=== PATIENT | male | born 1940 | race Caucasian/White ===

== ENCOUNTER 2018-07-15 10:55 | Emergency (ER) | payer MEDICARE, OTHER ==
[2018-07-15 11:04] VITALS: BP 124/59
[2018-07-15] MEDS ORDERED: Diphtheria,Pertussis(Acell),Tetanus Vaccine 0.5 ML SDV IM ONE (11:35)
--- NOTE | 2018-07-15 11:35 | EDM.PDOC ---
ED HPI GENERAL MEDICAL PROBLEM - General Chief Complaint: Laceration Stated Complaint: LEFT RING FINGER LAC Time Seen by Provider: 07/15/18 11:23 Source of Information: Reports: Patient History Limitations: Reports: No Limitations - History of Present Illness INITIAL COMMENTS - FREE TEXT/NARRATIVE: 78-year-old male presents without evaluation and treatment of the laceration to the left fourth distal finger. Injury occurred last night. Reports he cut himself with a pocket knife. Initially bled quite heavily but bleeding is controlled upon arrival to the ED. He denies any numbness or tingling or decreased range of motion. Unsure of last tetanus. Patient takes garlic and a baby aspirin daily. Left 4-Ring finger Pain Score (Numeric/FACES): 3 - Related Data Allergies Allergy/AdvReac Type Severity Reaction Status Date / Time No Known Allergies Allergy Verified 07/15/18 11:04 Past Medical History HEENT History: Reports: Cataract Cardiovascular History: Reports: Hypertension Gastrointestinal History: Reports: Chronic Constipation Musculoskeletal History: Reports: Amputation, Back Pain, Chronic, Fracture Oncologic (Cancer) History: Reports: Basal Cell Carcinoma Dermatologic History: Reports: Melanoma - Past Surgical History HEENT Surgical History: Reports: Cataract Surgery Cardiovascular Surgical History: Reports: Other (See Below) Musculoskeletal Surgical History: Reports: Arthroscopic Procedure, Hip Replacement, Shoulder Surgery Social & Family History - Caffeine Use Caffeine Use: Reports: Coffee ED ROS GENERAL - Review of Systems Review Of Systems: See Below Musculoskeletal: Reports: Other (No decreased range of motion to the left hand fourth finger) Skin: Reports: Wound (Left hand distal fourth finger) Neurological: Denies: Numbness, Tingling ED EXAM, SKIN/RASH Exam: See Below Exam Limited By: No Limitations General Appearance: Alert, WD/WN, No Apparent Distress Respiratory/Chest: No Respiratory Distress Cardiovascular: Normal Peripheral Pulses, Regular Rate, Rhythm Peripheral Pulses: 2+: Radial (L) Extremities: Normal Inspection, Normal Range of Motion (Patient is able to make a fist, flex and extend the fourth finger both without and against resistance, able to adduct and abduct the fingers), Normal Capillary Refill Neurological: Alert, Oriented, Normal Cognition Psychiatric: Normal Affect, Normal Mood Skin: Warm, Dry, Normal Color, Wound/Incision (Proximally 1/2 cm laceration to the left hand distal fourth finger, ventral aspect over the finger pad superficial) Location, Skin: Upper Extremity, Left Characteristics: Linear Associated features: Tenderness (Reports soreness to the area) ED SKIN PROCEDURES - Laceration/Wound Repair Left Distal Ventral Digit - 4th (Ring) Lac/Wound length In cm: 2 Appearance: Superficial, Linear Distal NVT: Neuro & Vascular Intact, No Tendon Injury Closed with: Dermabond Sterile Dressing Applied: Nurse Tetanus Status Addressed: Yes Complications: No Course - Vital Signs Last Recorded V/S: Last Vital Signs Temp 98.4 F 07/15/18 11:01 Pulse 71 07/15/18 11:01 Resp 16 07/15/18 11:01 BP 124/59 L 07/15/18 11:01 Pulse Ox 96 07/15/18 11:01 - Orders/Labs/Meds Orders: Active Orders 24 hr Category Date Time Status Vaccines to be Administered [RC] PER UNIT ROUTINE Care 07/15/18 11:35 Active Meds: Medications Discontinued Medications Generic Name Dose Route Start Last Admin Trade Name Freq PRN Reason Stop Dose Admin Diphtheria/Tetanus/Acell Pertussis 0.5 ml 07/15/18 11:35 07/15/18 11:57 Adacel IM 07/15/18 11:36 0.5 ml .ONCE ONE Administration - Re-Assessments/Exams Free Text/Narrative Re-Assessment/Exam: 07/15/18 12:27 wound repaired with dermabond by nursing staff. Patient tolerated well. No complications. Tetanus up dated. Discharge instructions as documented. Departure - Departure Time of Disposition: 12:28 Disposition: Home, Self-Care 01 Condition: Good Clinical Impression: Laceration - Discharge Information *PRESCRIPTION DRUG MONITORING PROGRAM REVIEWED*: No *COPY OF PRESCRIPTION DRUG MONITORING REPORT IN PATIENT BEKA: No Instructions: Laceration Care, Adult, [id number] Referrals: Marcy Ontiveros DO [Ordering Only Provider] - Forms: ED Department Discharge Additional Instructions: Wash the wound with gentle soap and water twice a day. Keep covered with a Band- Aid. Do not apply antibacterial ointment as this will break down the glue. [id number] Tylenol or Motrin as for pain. If you notice any increased swelling, pus or redness. Present to the clinic or the ER. Please return to the ER for symptoms change or worsen. Follow-up with your primary care provider as needed. you Tetanus was updated today, this is good for the next 10 years. - My Orders Last 24 Hours: My Active Orders 07/15/18 11:35 Vaccines to be Administered [RC] PER UNIT ROUTINE - Assessment/Plan Last 24 Hours: My Active Orders 07/15/18 11:35 Vaccines to be Administered [RC] PER UNIT ROUTINE
== END 2018-07-15 12:40 | disposition home or self-care (01) ==
LOC: JD.ED 10:55
DX: S61.215A Laceration without foreign body of left ring finger without damage to nail, initial encounter (principal); I10 Essential (primary) hypertension; W26.0XXA Contact with knife, initial encounter; Z23 Encounter for immunization
CPT/HCPCS: 12001; 90471; 90715; 99283-25

== ENCOUNTER 2019-10-06 12:55 | Emergency (ER) | payer OTHER, MEDICARE ==
[2019-10-06 13:20] VITALS: BP 122/49; PULSE 73
[2019-10-06] MEDS ORDERED: Doxycycline 100 MG Cap PO ONE (15:02)
--- NOTE | 2019-10-06 15:07 | EDM.PDOC ---
ED HPI GENERAL MEDICAL PROBLEM - General Chief Complaint: Lower Extremity Injury/Pain Stated Complaint: RIGHT HIP PAIN Time Seen by Provider: 10/06/19 13:30 Source of Information: Reports: Patient, RN Notes Reviewed - History of Present Illness INITIAL COMMENTS - FREE TEXT/NARRATIVE: 79 year old male with C/O drainage from R proximal thigh. He states he has been having occasional swelling and than drainage from a small area of R lower prior hip surgery incision for several months. More recently an area swelled up just above that and than started draining a few days ago. That is not draining at the present time. He was advised by the [facility] to come here for further eval and treatment. No fever or chills. No significant pain. Right Hip Pain Score (Numeric/FACES): 6 - Related Data Allergies Allergy/AdvReac Type Severity Reaction Status Date / Time No Known Allergies Allergy Verified 10/06/19 13:21 Home Meds: Home Meds Doxycycline [Vibramycin] 100 mg PO BID #14 tab 10/06/19 [Rx] Past Medical History HEENT History: Reports: Cataract Cardiovascular History: Reports: Hypertension Gastrointestinal History: Reports: Chronic Constipation Musculoskeletal History: Reports: Amputation, Back Pain, Chronic, Fracture Oncologic (Cancer) History: Reports: Basal Cell Carcinoma Dermatologic History: Reports: Melanoma - Past Surgical History HEENT Surgical History: Reports: Cataract Surgery Cardiovascular Surgical History: Reports: Other (See Below) Musculoskeletal Surgical History: Reports: Arthroscopic Procedure, Hip Replacement, Shoulder Surgery Social & Family History - Tobacco Use Smoking Status *Q: Current Every Day Smoker Years of Tobacco use: 73 Packs/Tins Daily: 1 - Caffeine Use Caffeine Use: Reports: Coffee Review of Systems - Review of Systems Review Of Systems: See Below Constitutional: Denies: Chills, Fever Mouth/Throat: Reports: No Symptoms Respiratory: Denies: Shortness of Breath, Cough Cardiovascular: Denies: Chest Pain GI/Abdominal: Denies: Abdominal Pain, Nausea, Vomiting Musculoskeletal: Denies: Leg Pain, Joint Pain Skin: Reports: Erythema (small areas of erythema and drainage R lateral proximal thigh) Neurological: Denies: Numbness, Tingling, Difficulty Walking, Weakness ED EXAM, GENERAL - Physical Exam Exam: See Below General Appearance: Alert, No Apparent Distress Eye Exam: Bilateral Eye: PERRL Throat/Mouth: Normal Inspection Head: Atraumatic. No: Facial Swelling Neck: Supple Respiratory/Chest: No Respiratory Distress, Lungs Clear, Normal Breath Sounds Cardiovascular: Regular Rate, Rhythm GI/Abdominal: Soft, Non-Tender Back Exam: Normal Inspection Extremities: Other (very small inflamed lesion R lateral thigh, no swelling or active drainage, small area of swelling, inflamation, slightly moist just below that. Both of these are over the previously healed incision of prior R hip surgery) Neurological: Alert, Oriented, No Motor/Sensory Deficits Skin Exam: Warm, Dry, Normal Color, Other (no other swollen skin lesions of this nature upper or lower body) Course - Vital Signs Last Recorded V/S: Last Vital Signs Temp 98.5 F 10/06/19 13:09 Pulse 73 10/06/19 13:09 Resp 20 10/06/19 13:09 BP 122/49 L 10/06/19 13:09 Pulse Ox 96 10/06/19 13:09 - Orders/Labs/Meds Orders: Active Orders 24 hr Category Date Time Status CULTURE WOUND [RM] Stat Lab 10/06/19 13:57 Received Labs: Laboratory Tests 10/06/19 10/06/19 Range/Units 14:00 14:00 WBC 7.26 (4.23-9.07) K/mm3 RBC 4.19 L (4.63-6.08) M/mm3 Hgb 12.4 L (13.7-17.5) gm/dl Hct 37.3 L (40.1-51.0) % MCV 89.0 (79.0-92.2) fl MCH 29.6 (25.7-32.2) pg MCHC 33.2 (32.2-35.5) g/dl RDW Std Deviation 42.6 (35.1-43.9) fL Plt Count 284 (163-337) K/mm3 MPV 8.9 L (9.4-12.3) fl Neut % (Auto) 59.5 (34.0-67.9) % Lymph % (Auto) 28.2 (21.8-53.1) % [place] % (Auto) 9.6 (5.3-12.2) % Eos % (Auto) 1.7 (0.8-7.0) Baso % (Auto) 0.6 (0.1-1.2) % Neut # (Auto) 4.32 (1.78-5.38) K/mm3 Lymph # (Auto) 2.05 (1.32-3.57) K/mm3 [place] # (Auto) 0.70 (0.30-0.82) K/mm3 Eos # (Auto) 0.12 (0.04-0.54) K/mm3 Baso # (Auto) 0.04 (0.01-0.08) K/mm3 C-Reactive Protein 3.5 H* (<1.0) mg/dL Meds: Medications Discontinued Medications Generic Name Dose Route Start Last Admin Trade Name Freq PRN Reason Stop Dose Admin Doxycycline Hyclate 200 mg 10/06/19 15:02 10/06/19 15:16 Vibramycin PO 10/06/19 15:03 200 mg ONETIME ONE Administration - Re-Assessments/Exams Free Text/Narrative Re-Assessment/Exam: 10/06/19 19:54 WBC 7,200, CRP 3.5., will start him on doxycycline BID, have cultured the lower lesion. [facility]. Departure - Departure Time of Disposition: 15:03 Disposition: Home, Self-Care 01 Condition: Fair Clinical Impression: Skin infection - Discharge Information Prescriptions: Doxycycline [Vibramycin] 100 mg PO BID #14 tab Referrals: Britt Desai DO [Primary Care Provider] - Forms: ED Department Discharge Additional Instructions: warm compresses for about 10 minutes 2 to 3 times daily area of infection R leg , Doxycycline 100 mg twice daily for the next 7 days, [facility]. - My Orders Last 24 Hours: My Active Orders 10/06/19 13:57 CULTURE WOUND [RM] Stat - Assessment/Plan Last 24 Hours: My Active Orders 10/06/19 13:57 CULTURE WOUND [RM] Stat
== END 2019-10-06 15:20 | disposition home or self-care (01) ==
LOC: JD.ED 12:55
DX: L08.9 Local infection of the skin and subcutaneous tissue, unspecified (principal); I10 Essential (primary) hypertension; F17.210 Nicotine dependence, cigarettes, uncomplicated
CPT/HCPCS: 36415; 85025; 86140; 87075; 87205; 99283; A9270; 87070; 99282

== ENCOUNTER 2020-04-21 17:07 | Emergency (ER) | payer OTHER, MEDICARE ==
[2020-04-21 17:19] VITALS: BP 165/76; PULSE 68
--- NOTE | 2020-04-21 17:23 | EDM.PDOC ---
ED HPI GENERAL MEDICAL PROBLEM - General Chief Complaint: ENT Problem Stated Complaint: [facility] Time Seen by Provider: 04/21/20 17:09 Source of Information: Reports: Patient, EMS History Limitations: Reports: No Limitations - History of Present Illness INITIAL COMMENTS - FREE TEXT/NARRATIVE: The patient presents by [facility] for a left nostril nose bleed. This has been going for the 3rd day and he could not stop it this afternoon. He has no trauma to his nose. He is on aspirin. He has no history of nose bleeds before. He does have a history of hypertension but it is in good control. Onset: Sudden Duration: Day(s): Location: Reports: Other (left nostril) Improves with: Reports: None Worsens with: Reports: None Associated Symptoms: Reports: No Other Symptoms - Related Data Allergies Allergy/AdvReac Type Severity Reaction Status Date / Time No Known Allergies Allergy Verified 04/21/20 17:12 Home Meds: Home Meds Aspirin [Halfprin] 81 mg PO DAILY 04/21/20 [History] Cholecalciferol (Vitamin D3) [Vitamin D3] 1,000 unit PO DAILY 04/21/20 [History] Lisinopril. 1 tab PO DAILY 04/21/20 [History] Propylene Glycol/Peg 400 [Systane 0.3-0.4% Eye Drops] 1 drop OP DAILY 04/21/20 [History] Past Medical History HEENT History: Reports: Cataract Cardiovascular History: Reports: Hypertension Gastrointestinal History: Reports: Chronic Constipation Musculoskeletal History: Reports: Amputation, Back Pain, Chronic, Fracture Oncologic (Cancer) History: Reports: Basal Cell Carcinoma Dermatologic History: Reports: Melanoma - Infectious Disease History Infectious Disease History: Reports: MRSA Other Infectious Disease History: MRSA + 10/06/19 (right hip wound culture) - Past Surgical History HEENT Surgical History: Reports: Cataract Surgery Cardiovascular Surgical History: Reports: Other (See Below) Musculoskeletal Surgical History: Reports: Arthroscopic Procedure, Hip Replacement, Shoulder Surgery Social & Family History - Caffeine Use Caffeine Use: Reports: Coffee ED ROS ENT - Review of Systems Review Of Systems: See Below Constitutional: Reports: No Symptoms HEENT: Reports: Nosebleed Respiratory: Reports: No Symptoms Cardiovascular: Reports: No Symptoms Endocrine: Reports: No Symptoms GI/Abdominal: Reports: No Symptoms : Reports: No Symptoms Musculoskeletal: Reports: No Symptoms ED EXAM, ENT - Physical Exam Exam: See Below Exam Limited By: No Limitations General Appearance: Alert, No Apparent Distress Ears: Normal External Exam Nose: Active Bleeding (mild to the left anterior septum) Mouth/Throat: Normal Inspection Respiratory/Chest: No Respiratory Distress ED ENT PROCEDURES - Epistaxis Procedure Indication: Epistaxis Recent anticoagulants/antiplatlets: Yes (aspirin) Uncontrolled HTN: No Recent septal/nasal surgery: No Site of bleeding: Left Nare, Anterior Chemical cautery: Silver Nitrate Topical Complications: No Course - Vital Signs Last Recorded V/S: Last Vital Signs Temp 97.6 F 04/21/20 17:16 Pulse 68 04/21/20 17:16 Resp 16 04/21/20 17:16 BP 165/76 H 04/21/20 17:16 Pulse Ox 98 04/21/20 17:16 - Re-Assessments/Exams Free Text/Narrative Re-Assessment/Exam: 04/21/20 17:23 It appears I was able to stop it with silver nitrate. I will see if it holds. 04/21/20 18:06 He had no more bleeding. I put some antibiotic ointment in each nostril. I will discharge him home. Departure - Departure Time of Disposition: 18:10 Disposition: Home, Self-Care 01 Condition: Good Clinical Impression: Epistaxis - Discharge Information *PRESCRIPTION DRUG MONITORING PROGRAM REVIEWED*: Not Applicable *COPY OF PRESCRIPTION DRUG MONITORING REPORT IN PATIENT BEKA: Not Applicable Referrals: PCP,Unknown [Ordering Only Provider] - Forms: ED Department Discharge Additional Instructions: Put antibiotic ointment in each nostril 2 times per day for a week. Please return if you are worse. Sepsis Event Note (ED) - Evaluation Sepsis Screening Result: No Definite Risk - Focused Exam Vital Signs: Vital Signs Temp Pulse Resp BP Pulse Ox 04/21/20 17:16 97.6 F 68 16 165/76 H 98
== END 2020-04-21 18:30 | disposition home or self-care (01) ==
LOC: JD.ED 17:07
DX: R04.0 Epistaxis (principal); I10 Essential (primary) hypertension; Z79.82 Long term (current) use of aspirin; Z79.899 Other long term (current) drug therapy
CPT/HCPCS: 30901; 99283-25

== ENCOUNTER 2022-11-20 16:55 | Emergency (ER) | payer OTHER ==
[2022-11-20] MEDS ORDERED: Acetaminophen 325 MG Tab PO ONE (17:29)
[2022-11-20 18:02] LABS: ESTIMATED GFR 46 mL/min (>60)
[2022-11-20] MEDS: Sodium Chloride 0.9% 10 ML Syringe FLUSH PRN (18:14)
[2022-11-20] MEDS ORDERED: Sodium Chloride 0.9% 1,000 ML IV ONE ×2 (18:55→20:22)
[2022-11-20 19:32] LABS: CORONAVIRUS COVID-19 NAA NEGATIVE (NEGATIVE)
[2022-11-20] MEDS ORDERED: Vancomycin 2 GM in Sodium Chloride 0.9% 500 ML IV ONE (20:51)
[2022-11-21] MEDS ORDERED: Acetaminophen 325 MG Tab PO PRN (05:58)
[2022-11-21 06:09] VITALS: BP 129/96; PULSE 87
[2022-11-21] MEDS: Sodium Chloride 0.9% 10 ML Syringe FLUSH PRN (10:04)
[2022-11-21] MEDS ORDERED: Morphine 4 MG/ML Syringe IVPUSH ONE (13:46)
[2022-11-21] MEDS ORDERED: Cefepime 2 GM in Sodium Chloride 0.9% 50 ML IV ONE (16:19)
[2022-11-21] MEDS ORDERED: Lactated Ringers 1,000 ML IV SCH (16:30)
== END 2022-11-21 17:50 ==
LOC: JD.ED 16:55
DX: A41.9 Sepsis, unspecified organism (principal); T84.51XD Infection and inflammatory reaction due to internal right hip prosthesis, subsequent encounter; I10 Essential (primary) hypertension; Z79.82 Long term (current) use of aspirin; Z79.899 Other long term (current) drug therapy; Z20.822 Contact with and (suspected) exposure to COVID-19
CPT/HCPCS: 0241U; 36415; 51701; 71045; 73700; 80053; 81001; 83605; 85025; 86140; 87040; 96361; 96365; 96366; 96367; 96375; 99285; A9270; J0692; J2270; J3370; J3490; J7030; J7040; J7120; 51702

== ENCOUNTER 2024-03-03 15:50 | Emergency (ER) | payer OTHER ==
[2024-03-03 16:39] LABS: BASOPHILS ABSOLUTE AUTO 0.1 K/mm3 (0.0-0.2); BASOPHILS PERCENT AUTO 0.7 % (0.0-1.0); EOSINOPHILS ABSOLUTE AUTO 0.3 K/mm3 (0.0-0.4); EOSINOPHILS PERCENT AUTO 2.7 % (0.0-6.0); HEMOGLOBIN 11.2 gm/dl (14.0-18.0); IMMATURE GRAN ABSOLUTE AUTO 0.06 K/mm3 (0.00-0.05); IMMATURE GRAN PERCENT AUTO 0.7 % (0.0-0.4); LYMPHOCYTES ABSOLUTE AUTO 2.3 K/mm3 (1.0-4.8); LYMPHOCYTES PERCENT AUTO 25.4 % (24.0-44.0); MEAN CORPUSCULAR HEMOGLOBIN 29.2 pg (28.0-32.0); MEAN CORPUSCULAR HGB CONC 32.9 g/dl (32.0-36.0); MEAN CORPUSCULAR VOLUME 88.5 fl (83.0-99.0); MEAN PLATELET VOLUME 8.5 fl (9.4-12.4); MONOCYTES ABSOLUTE AUTO 0.9 K/mm3 (0.0-0.8); NEUTROPHILS ABSOLUTE AUTO 5.5 K/mm3 (1.8-7.7); NEUTROPHILS PERCENT AUTO 60.5 % (41.0-71.0); PLATELET COUNT,PLT 288 K/mm3 (150-400); RED BLOOD CELL COUNT 3.84 M/mm3 (4.52-5.90)
[2024-03-03] MEDS: Sodium Chloride 0.9% 10 ML Syringe FLUSH PRN (17:43)
[2024-03-03] MEDS: amLODIPine 10 MG Tab PO ONE (18:22)
[2024-03-03] MEDS: Sulfamethoxazole/Trimethoprim 800-160 MG Tab PO ONE (18:45)
[2024-03-03] MEDS: Labetalol 100 MG/20 ML MDV IVPUSH ONE (18:45)
[2024-03-03 19:05] LABS: A/G RATIO 1.1 (1-2); ALBUMIN 3.6 g/dl (3.4-5.0); BILIRUBIN TOTAL 0.3 mg/dL (0.2-1.0); C-REACTIVE PROTEIN 0.19 mg/dL (<0.30); CALCIUM 8.9 mg/dL (8.5-10.1); EST CRCL DRUG DOSING (CG) 59.28 mL/min; PROTEIN TOTAL,TP 6.8 g/dl (6.4-8.2)
[2024-03-03 19:41] VITALS: BP 182/77; PULSE 59
== END 2024-03-03 19:38 | disposition home or self-care (01) ==
LOC: JD.ED 15:50
DX: L03.115 Cellulitis of right lower limb (principal); I10 Essential (primary) hypertension; Z87.891 Personal history of nicotine dependence; Z79.899 Other long term (current) drug therapy; Z79.82 Long term (current) use of aspirin
CPT/HCPCS: 36415; 80053; 85025; 86140; 93971; 96374; 99284; A9270; J1921; J3490

== ENCOUNTER 2025-03-27 15:49 | Inpatient (IN) | payer OTHER ==
[2025-03-27] MEDS ORDERED: Sodium Chloride 0.9% 100 ML IV SCH (16:45)
[2025-03-27 17:04] LABS: BASOPHILS PERCENT AUTO 0.3 % (0.0-1.0); EOSINOPHILS ABSOLUTE AUTO 0.1 K/mm3 (0.0-0.4); EOSINOPHILS PERCENT AUTO 0.5 % (0.0-6.0); HEMATOCRIT 29.4 % (42.0-52.0); HEMOGLOBIN 9.4 gm/dl (14.0-18.0); IMMATURE GRAN ABSOLUTE AUTO 0.08 K/mm3 (0.00-0.05); IMMATURE GRAN PERCENT AUTO 0.6 % (0.0-0.4); LYMPHOCYTES ABSOLUTE AUTO 1.9 K/mm3 (1.0-4.8); LYMPHOCYTES PERCENT AUTO 13.4 % (24.0-44.0); MEAN CORPUSCULAR HEMOGLOBIN 28.2 pg (28.0-32.0); MEAN CORPUSCULAR VOLUME 88.3 fl (83.0-99.0); MEAN PLATELET VOLUME 8.7 fl (9.4-12.4); MONOCYTES ABSOLUTE AUTO 1.5 K/mm3 (0.0-0.8); MONOCYTES PERCENT AUTO 10.5 % (0.0-8.0); NEUTROPHILS ABSOLUTE AUTO 10.9 K/mm3 (1.8-7.7); NEUTROPHILS PERCENT AUTO 74.7 % (41.0-71.0); PLATELET COUNT,PLT 609 K/mm3 (150-400); RED BLOOD CELL COUNT 3.33 M/mm3 (4.52-5.90); WHITE BLOOD CELL COUNT,WBC 14.52 K/mm3 (3.9-11.3)
[2025-03-27] MEDS: Iopamidol 755 Mg/ML 100 ML Bottle IVPUSH ONE (17:08)
[2025-03-27 17:25] LABS: LACTIC ACID 1.3 mmol/L (0.4-2.0)
[2025-03-27 17:32] LABS: A/G RATIO 0.6 (1-2); ALANINE AMINOTRANSFERASE,ALT 47 U/L (16-63); ALKALINE PHOSPHATASE 174 U/L (46-116); ASPARTATE AMNIOTRANSFERASE,AST 28 U/L (15-37); BILIRUBIN TOTAL 0.4 mg/dL (0.2-1.0); BUN/CREATININE RATIO 29.2 (14-18); CALCIUM 9.5 mg/dL (8.5-10.1); CREATININE 1.3 mg/dL (0.7-1.3); ESTIMATED GFR 54 mL/min (>60); GLUCOSE RANDOM 105 mg/dL (70-99); MAGNESIUM 2.4 mg/dL (1.8-2.4); PROTEIN TOTAL,TP 7.7 g/dl (6.4-8.2)
[2025-03-27 17:43] LABS: CARBON DIOXIDE,CO2 27 mEq/L (21-32)
[2025-03-27 17:45] LABS: CHLORIDE,CL 97 mEq/L (98-107); SODIUM,NA 132 mEq/L (136-145)
[2025-03-27 17:46] LABS: BLOOD UREA NITROGEN,BUN 39 mg/dL (7-18)
[2025-03-27] MEDS: Heparin Sodium 5,000 Units/ML Vial IVPUSH ONE (18:13)
[2025-03-27] MEDS: Heparin Sodium/D5W 250 ML IV SCH (18:18)
[2025-03-27 18:23] LABS: SLIDE REVIEW ABNORMAL SMEAR
[2025-03-27 20:29] LABS: APPEARANCE,URINE CLEAR (Clear); BILIRUBIN,URINE NEGATIVE (Negative); COLOR,URINE LIGHT YELLOW (Yellow); GLUCOSE,URINE NEGATIVE (Negative); KETONES,URINE NEGATIVE (Negative); LEUKOCYTE ESTERASE,URINE NEGATIVE (Negative); NITRITE,URINE NEGATIVE (Negative); OCCULT BLOOD,URINE NEGATIVE (Negative); PH,URINE 7.5 (5.0-8.0); PROTEIN,URINE NEGATIVE (Negative); UROBILINOGEN,URINE 0.2 (0.2-1.0)
[2025-03-27] MEDS: LORazepam 2 MG/ML SDV IVPUSH SCH (20:47)
[2025-03-28] MEDS: Heparin Sodium 5,000 Units/ML Vial IVPUSH ONE (01:31)
[2025-03-28] MEDS: fentaNYL 100 MCG/2 ML SDV IVPUSH PRN (03:57)
[2025-03-28] MEDS ORDERED: Sennosides/Docusate Sodium 50-8.6 MG Tab PO PRN (08:34)
[2025-03-28] MEDS ORDERED: Acetaminophen 325 MG Tab PO PRN (08:34)
[2025-03-28] MEDS ORDERED: Ondansetron 4 MG/2 ML SDV IVPUSH PRN (08:34)
[2025-03-28] MEDS: Morphine 2 MG/ML SYRINGE IVPUSH PRN (13:19)
[2025-03-28] MEDS: LORazepam 2 MG/ML SDV IVPUSH PRN (21:00)
[2025-03-28] MEDS: Famotidine 20 MG Tab PO SCH (21:03)
[2025-03-29 20:32] VITALS: PULSE 88
[2025-03-30 08:35] VITALS: BP 139/75
== END 2025-03-30 13:51 | DRG 951 ==
LOC: JD.ED 15:49 → JD.MS 20:08
PROVIDERS: ADMIT Student in an Organized Health Care Education/Training Program; ATTEND Student in an Organized Health Care Education/Training Program
DX: Z51.5 Encounter for palliative care (principal); E87.1 Hypo-osmolality and hyponatremia; I50.32 Chronic diastolic (congestive) heart failure; F03.A4 Unspecified dementia, mild, with anxiety; Z66 Do not resuscitate; Z88.6 Allergy status to analgesic agent; I70.201 Unspecified atherosclerosis of native arteries of extremities, right leg; I87.2 Venous insufficiency (chronic) (peripheral); H91.90 Unspecified hearing loss, unspecified ear; E78.00 Pure hypercholesterolemia, unspecified; K59.09 Other constipation; G89.29 Other chronic pain; M54.9 Dorsalgia, unspecified; I11.0 Hypertensive heart disease with heart failure; N40.1 Benign prostatic hyperplasia with lower urinary tract symptoms; R33.8 Other retention of urine; Z96.641 Presence of right artificial hip joint; D64.9 Anemia, unspecified; Z79.02 Long term (current) use of antithrombotics/antiplatelets; Z95.820 Peripheral vascular angioplasty status with implants and grafts; Z87.81 Personal history of (healed) traumatic fracture; Z87.828 Personal history of other (healed) physical injury and trauma; Z85.828 Personal history of other malignant neoplasm of skin; Z85.820 Personal history of malignant melanoma of skin; Z98.49 Cataract extraction status, unspecified eye; Z88.5 Allergy status to narcotic agent; Z79.899 Other long term (current) drug therapy
CPT/HCPCS: 36415; 73706; 80053; 81003; 82550; 83605; 83735; 85025; 85730; 93005; 96365; 96366; 99285; J1644 ×2; Q9967; 51702; 71045; 71045-26; J2060; J2270; J3010